=== PATIENT | male | born 1975 | race Asian ===

== ENCOUNTER 2023-09-10 04:12 | Emergency (ER) | payer OTHER, SELFPAY ==
[2023-09-10 04:14] VITALS: BP 122/78
[2023-09-10 04:54] LABS: Urine Albumin Negative (Neg - Trace); Urine Bilirubin Negative (Negative); Urine Character Very Cloudy (Clear); Urine Color Yellow; Urine Glucose Negative (Negative); Urine Ketone 1+ (Negative); Urine Leukocyte Negative (Negative); Urine Nitrite Negative (Negative); Urine Occult Blood Trace (Negative); Urine Urobilinogen Negative (Neg - 1+)
[2023-09-10 04:55] LABS: % Basophils 0.6 % (0-2); % Eosinophils 1.5 % (0-6); % Immature Granulocytes 0.2 % (0-0.5); % Lymphocytes 17.1 % (20.5-51.1); % Monocytes 5.5 % (1.7-9.3); % Neutrophils 75.1 % (42.2-75.2); Absolute Basophils 0.1 10^3/uL (0-0.2); Absolute Eosinophils 0.1 10^3/uL (0-0.7); Absolute Lymphocytes 1.5 10^3/uL (1.2-3.4); Absolute Monocytes 0.5 10^3/uL (0.1-0.6); Absolute Neutrophils 6.5 10^3/uL (1.4-6.5); Hematocrit 32.4 % (39.0-52.0); Hemoglobin 10.7 g/dL (13.0-18.0); Mean Corpuscular Volume 63.7 fL (80.0-94.0); Mean Platelet Volume 10.3 fL (7.4-10.4); Nucleated Red Blood Cells % 0 % (-); Platelet Count 185 10^3/uL (130-400); Red Blood Cell Count 5.09 10^6/uL (4.70-6.10); Red Cell Dist. Width 15.3 % (11.5-14.5); White Blood Cell Count 8.6 10^3/uL (4.8-10.8)
[2023-09-10 04:56] VITALS: BMI 23.0
[2023-09-10 05:08] LABS: ALT (SGPT) 42 U/L (0-50); AST (SGOT) 29 U/L (17-59); Albumin 4.7 g/dl (3.5-5.0); Alkaline Phosphatase 48 U/L (38-126); Blood Urea Nitrogen 19 mg/dl (9-20); Calcium 9.5 mg/dl (8.4-10.2); Carbon Dioxide 26 mmol/L (22-30); Chloride 104 mmol/L (98-107); Estimated Creatinine Clearance 93 ml/min; Glucose 106 mg/dl (70-99); Lipase 85 U/L (23-300); Potassium 3.8 mmol/L (3.5-5.1); Sodium 140 mmol/L (135-145); Total Protein 7.5 g/dl (6.3-8.2); eGFR > 60.00
[2023-09-10 05:19] LABS: Urine Amorphous Seen; Urine Bacteria Few (Negative); Urine Red Blood Cell 0-2 /HPF (0-2); Urine Squamous Cell 0-2 /LPF (Few); Urine White Cell 0-2 /HPF (0-5)
[2023-09-10 05:37] VITALS: BP 120/83
--- NOTE | 2023-09-10 05:54 | ED.GENMED ---
History of Present Illness
General
Chief Complaint: Abdominal Pain
Source: patient
Exam Limitations: none
Time Seen by Provider: 09/10/23 04:32
Nursing documentation reviewed up to this point in time: agreed with
History of Present Illness
History of Present Illness:
Pleasant 48-year-old male who presents with lower abdominal pain. He states that it began around noon yesterday. Patient states that the pain comes and goes. He was seen by his primary care provider and was diagnosed with hematuria. He is due to
follow-up with [facility] for cystoscopy. Patient did have a noncontrast CAT scan approximately 3 months ago when he was evaluated for similar pain at [place] [facility]. He is typically seen at [facility] but states he
came here for repeat evaluation of this subacute pain. Patient denies any flank tenderness. He reports no alleviating or exacerbating features. He denies fever, chills, chest pain, or shortness of breath. Patient has no further complaints at
this time.
Review of Systems
Review of Systems
Allergies reviewed?: Yes
All Other Systems: ROS reviewed and negative except as documented in HPI and ROS
Constitutional: Reports no symptoms
EENT: Reports no symptoms
Respiratory: Reports no symptoms
Cardiac: Reports no symptoms
ABD/GI: Reports abdominal pain
: Reports no symptoms
Musculoskeletal: Denies joint swelling, muscle stiffness or back pain
Skin: Reports no symptoms
Neurological: Reports no symptoms
Endocrine: Reports no symptoms
Hematologic/Lymphatic: Reports no symptoms
Psychiatric: Reports anxiety
Phy Exam
General Physical Exam
General Presentation: well appearing and no apparent distress
General Skin: warm and dry
General Habitus: normal
General Mental: alert
General Hydration: appears well hydrated
ENT Exam
ENT Exam: EOMI, pharynx normal, neck supple and normocephalic
Eye Exam
Eye Exam: PERRL, cornea clear and conjunctiva normal
Cardiovascular Exam
Cardiovascular Exam: regular rate/rhythm, no edema, no murmur and normal peripheral pulses
Pulmonary Exam
Pulmonary Exam: lungs clear, no respiratory distress, no rales, no crackles, no rhonchi, no stridor, no wheezing and no cough
Gastrointestinal Exam
Gastrointestinal Exam: normal bowel sounds, non tender, soft, no organomegaly, no pulsatile mass and non distended
Palpation: left lower quadrant: Minimal tenderness and right lower quadrant: Minimal tenderness
Neurological Exam
Neurological Exam: alert, oriented x3, no motor deficits and speech normal
Musculoskeletal Exam
Musculoskeletal Exam: full ROM and no edema
Skin Exam
Skin Exam: normal color, warm/dry, no rash and no petechia
Psychiatric Exam
Psychiatric Exam: normal mood/affect
Course
Orders/Labs/Results
Orders:
Orders
09/10/23 04:46
Complete Blood Count/With Diff Urgent
Comprehensive Metabolic Panel Urgent
Lipase Urgent
Urinalysis Reflex To Culture Urgent
Date Specimen was Collected: 09/10/23
Time Specimen was Collected: 04:25
Urine Microscopic Reflex Cult Urgent
09/10/23 05:27
CT Abd/pelvis W Iv Cont Urgent
Comment:
Reason For Exam: lower abd pain, hematuria
09/10/23 06:13
Fosfomycin [Monurol] 3 gm PO ONCE ONE
Abnormal Lab Results
09/10/23
04:46
Hgb 10.7 L g/dL
(13.0-18.0)
Hct 32.4 L %
(39.0-52.0)
MCV 63.7 L fL
(80.0-94.0)
MCH 21.0 L pg
(27.0-31.0)
RDW 15.3 H %
(11.5-14.5)
Lymphocytes % 17.1 L %
(20.5-51.1)
Glucose 106 H mg/dl
(70-99)
Urine Ketones 1+ A
(Negative)
Ur Occult Blood Reflex Trace A
(Negative)
Urine Bacteria (Reflex) Few A
(Negative)
09/10/23 04:46
09/10/23 04:46
Vital Signs
Initial and Last Documented VS:
Initial Vital Signs
Temp Pulse Resp BP Pulse Ox
97.8 F 60 18 122/78 100
09/10/23 04:14 09/10/23 04:14 09/10/23 04:14 09/10/23 04:14 09/10/23 04:14
Last Documented Vital Signs
Temp Pulse Resp BP Pulse Ox
97.8 F 86 20 123/86 98
09/10/23 04:14 09/10/23 06:42 09/10/23 06:42 09/10/23 06:42 09/10/23 07:00
*Critical Care Note
Total Time (30-74mins, 75-104mins- exclusive of procedures): Not Applicable
Update Note
Update Note:
CT Abdomen and Pelvis (with IV contrast):
IMPRESSION:
Mild right ureteral distention without a visualized obstructing ureteral calculi or significant periureteral/perinephric stranding. Findings are nonspecific and may reflect the sequela of a recently passed stone versus an ascending urinary tract
infection. Correlation with urinalysis.
No bowel stranding or evidence of obstruction. Normal appendix. Moderate to large amount of stool within the colon.
Normal gallbladder, bile ducts and pancreas.
09/10/2023 0623 AM: Patient did feel flank pain but then states that it resolved. This might have represented a recently passed kidney stone. Patient to get a dose of Monurol and follow-up with urology
ED Attending Note
-
Portions of this chart may have been created with voice recognition software.� Occasional wrong word or��sound alike� substitutions may have occurred due to the inherent limitations of voice recognition software.
Discharge Plan
Departure
Patient Disposition: Home (Routine Discharge)
Date of Disposition: 09/10/23
Time of Disposition: 06:24
Patient with high blood pressure during this ER visit?: Yes
Discharge Problem:
Acute flank pain, Hematuria
Prescriptions:
No Action
Fish Oil
3 tab PO DAILY
Probiotic
1 tab PO DAILY
calcium
1 tab PO DAILY
magnesium
400 mg PO DAILY
naltrexone
4.5 mg PO DAILY
vitamin D2-vitamin K1
5,000 tab PO DAILY
zinc
1 tab PO DAILY
Referrals:
[facility] [Outside]
PRIVATE,PHYSICIAN [Family Provider] -
Activity Restrictions/Additional Instructions:
Please follow-up with your urologist at [facility]
You were treated with a one-time dose of antibiotic. No prescriptions necessary
It was a pleasure meeting you and taking part in your care. We hope for your continued healing and wellness.
Please read discharge instructions in their entirety. However, they are for general education and may not describe your exact diagnosis at discharge. Information on your ER visit and medical conditions were discussed with you along with appropriate
follow up information...
If indicated, please take your medications as instructed and indicated on discharge paperwork.
Please schedule a follow up appointment as directed. Call to schedule an appointment
Please return to the emergency department with ANY change in, persisting, or worsening of symptoms. If any of your symptoms do not improve, or persist, or become more severe within 6-12 hours, please return to the emergency department for further
care.
Please return to the emergency department if you develop a headache, neck pain/stiffness, fever greater than 100.4F, chest pain, shortness of breath, persistent nausea, vomiting, slurred speech, difficulty walking, numbness/tingling, weakness, signs
of infection or any other symptoms that are worrisome to you.
If you have any questions or concerns please do not hesitate to call the Hospital at or E-mail me directly at [email or web address]
Interventions
Interventions:
*Risk Screen - Suicide Last Done: 09/10/23 04:14
*General Assessment Last Done: 09/10/23 04:28
*Neglect/Abuse Screening Last Done: 09/10/23 04:14
ED- Fall Risk Assessment Last Done: 09/10/23 04:28
*ED COVID-19 Vaccine History Last Done: 09/10/23 04:36
*Nursing Disposition Last Done: 09/10/23 07:00
VJ-Otifvi-Jzqmdmirbg Assessment Last Done: 09/10/23 04:28
Discharge Date and Time
Discharge Date/Time: 09/10/23 07:00
Print Language: UKRAINIAN
[2023-09-10 06:42] VITALS: BP 123/86
[2023-09-10] MEDS: MONUROL 3 GM PO (06:47)
== END 2023-09-10 07:00 | disposition home or self-care (01) ==
LOC: EMR 04:12
PROVIDERS: EMERGENCY PHYSICIAN Student in an Organized Health Care Education/Training Program
DX: R10.30 Lower abdominal pain, unspecified (principal); R31.9 Hematuria, unspecified
CPT/HCPCS: 99284; 74177; 80053; 81003; 81015; 83690; 85025; Q9967